=== PATIENT | female | born 1950 | race Asian ===

== ENCOUNTER 2016-11-25 08:47 | Emergency (ER) | payer OTHER ==
[~2016-11-25] VITALS: Ht 160 cm; Wt 56.0 kg
[2016-11-25 08:55] VITALS: Ht 160 cm; Wt 56.0 kg
[2016-11-25] MEDS ORDERED: SOD CHLORIDE 0.9% 1,000 ML IV STA (12:04)
[2016-11-25] MEDS ORDERED: FAMOTIDINE 20 MG INJ IV STA (12:04)
[2016-11-25] MEDS ORDERED: ONDANSETRON 4 MG INJ IV STA (12:04)
[2016-11-25] MEDS ORDERED: morphine 2 MG INJ IV STA (12:04)
[2016-11-25] MEDS ORDERED: LANT3I SC (12:26)
[2016-11-25] MEDS ORDERED: RANO10002 PO (12:27)
[2016-11-25] MEDS ORDERED: FENO200C8 PO (12:27)
[2016-11-25] MEDS ORDERED: INSU200I SQ (12:28)
[2016-11-25] MEDS ORDERED: CLOP75TA27 PO (12:28)
[2016-11-25] MEDS ORDERED: ATOR20TA38 PO (12:29)
[2016-11-25] MEDS ORDERED: ATOR40TA68 PO (12:29)
[2016-11-25] MEDS ORDERED: AMLO-147 PO (12:30)
[2016-11-25] MEDS ORDERED: CARV3.1260 PO (12:30)
[2016-11-25] MEDS ORDERED: FURO-110 PO (12:31)
[2016-11-25] MEDS ORDERED: ASPI325T4 PO (12:31)
[2016-11-25] MEDS ORDERED: CALC0.5C4 PO (12:32)
[2016-11-25] MEDS ORDERED: SITA25TA3 PO (12:38)
--- NOTE | 2016-11-25 12:42 | RADRPT ---
PROCEDURE: CT Abdomen and Pelvis without contrast. CLINICAL INDICATION: Abdominal and pelvic pain. TECHNIQUE: CT scan of the abdomen and pelvis without contrast was performed. Coronal and sagittal reformatted images were obtained from the axial source images. Images were reviewed on a high-resolu [employer] PACS workstation. Total exam DLP is 403.55 mGy-cm. CTDIvol is 7.43 mGy. One or more of the fo llofox dose reduction techniques were used: Automated exposure control, adjustment of the mA and/or kV according to patient size, use of iterative reconstruction technique. COMPARISON: None. FINDINGS: The lung bases are normal. There is no pleural effusion or pericardial effusion. There are sternal wires and mediastinal clips from previous CABG. The liver is normal in size and attenuation. There is no focal hepatic lesion. The gallbladder is not visualized indicating it may be surgically absent. The common bile duct is d ilated measuring approximately 9 mm in diameter superiorly and 10 mm in diameter inferiorly. No obs tructing lesion is visualized. The spleen is normal in size. There is no focal splenic lesion. Both adrenals are normal with no enlargement or mass. The pancreas is unremarkable with no mass or evidence of pancreatitis. There is no renal mass or hydronephrosis. There is no renal calculus or ureteral calculus. The abdominal aorta is not dilated. There is calcification in the aorta consistent with atherosclero sis There is no retroperitoneal lymphadenopathy or mass. There is no pelvic lymphadenopathy or mass. The bladder and distal ureters are normal. The periappendiceal region is unremarkable with no evidence of appendicitis. The appendix is well se en and appears normal. The bowel and mesentery are normal. There is no free fluid or free gas. There are mild degenerative changes of the spine. There is no fracture or lytic lesion. IMPRESSION: 1. Status post CABG. 2. Gallbladder not visualized. 3. Mildly dilated common bile duct. 4. Atherosclerosis. 5. Normal appendix. 6. Mild degenerative changes of the spine. RPTAT: QQ .Demarco Pittman MD, MD Date Time Electronically viewed and signed by .Demarco Pittman MD, on 11/25/2016 12:42 .R/
--- NOTE | 2016-11-25 12:43 | RADRPT ---
PROCEDURE: XR Chest. CLINICAL INDICATION: Abdominal pain. TECHNIQUE: Single frontal view. COMPARISON: None. FINDINGS: There is right apical pleural thickening and adjacent pulmonary scarring. The lungs are otherwise cl ear. The heart size is normal. There are sternal wires. There is no pleural effusion. There is no pneumothorax. IMPRESSION: 1. Right apical pleural thickening and adjacent pulmonary scarring. 2. Previous median sternotomy. 3. Otherwise normal chest x-ray. RPTAT: QQ .Demarco Pittman MD, MD Date Time Electronically viewed and signed by .Demarco Pittman MD, MD on 11/25/2016 12:42 .R/
--- NOTE | 2016-11-25 12:44 | ERA ---
ER Documentation Chief Complaint Date/Time DATE: 11/25/16 TIME: 12:42 Chief Complaint EPIGASTRIC PAIN X 3 DAYS WITH NAUSEA VOMITING HPI This is a 66-year-old female history of coronary disease, who presents with epigastric abdominal pain with nausea and vomiting and lack of bowel movement for approximately 3 days. The patient describes the pain is moderate, intermittent with nonbloody nonbilious emesis. No bowel movement in approximately 5 days. Patient does not believe she has had abdominal surgical history. She also describes chest pain with the chest pain is constant, similar to chest pain that she has almost daily and is unchanged. She denies any exertional symptoms., No pleuritic pain. ROS All systems reviewed and are negative except as per history of present illness. Medications Home Meds Active Scripts Omeprazole* (Omeprazole*) 20 Mg Capsule.dr, 20 MG PO DAILY, #30 Prov:ANTHONY ULRICH MD 11/25/16 Ondansetron (Ondansetron Odt) 4 Mg Tab.rapdis, 4 MG PO Q6H Y for NAUSEA AND/OR VOMITING, #10 TAB Prov:ANTHONY ULRICH MD 11/25/16 Reported Medications Sitagliptin* (Januvia*) 25 Mg Tablet, 25 MG PO DAILY, #30 TAB 11/25/16 Calcitriol* (Calcitriol*) 0.5 Mcg Capsule, 0.5 MCG PO DAILY, CAP 11/25/16 Aspirin* (Aspirin*) 325 Mg Tablet, 325 MG PO DAILY, TAB 11/25/16 Furosemide* (Lasix*) 20 Mg Tablet, 20 MG PO BID, TAB 11/25/16 Amlodipine Besylate* (Amlodipine Besylate*) 10 Mg Tablet, 10 MG PO DAILY, #30 TAB 11/25/16 Carvedilol* (Carvedilol*) 3.125 Mg Tablet, 3.125 MG PO BID, #60 TAB 11/25/16 Atorvastatin Calcium* (Atorvastatin Calcium*) 20 Mg Tablet, 20 MG PO QHS, #30 TAB 11/25/16 Insulin Lispro (Humalog Kwikpen) 200 Unit/1 Ml Insuln.pen, 10 UNIT SQ BID WITH MEALS, EA 11/25/16 Clopidogrel Bisulfate (Clopidogrel) 75 Mg Tablet, 75 MG PO DAILY, #30 TAB 11/25/16 Fenofibrate, Micronized* (Fenofibrate*) 200 Mg Capsule, 200 MG PO DAILY, CAP 11/25/16 Ranolazine* (Ranexa*) 1,000 Mg Tab.sr.12h, 1000 MG PO Q12, TAB 11/25/16 Insulin Glargine* (Lantus*) 100 Unit/Ml Soln, 27 UNIT SC DAILY, #1 VIAL 11/25/16 Discontinued Reported Medications Atorvastatin* (Atorvastatin*) 40 Mg Tablet, 40 MG PO QHS, #30 TAB 11/25/16 Allergies Allergies: Coded Allergies: allopurinol (Unverified Allergy, Unknown, RASH HIVES, 11/25/16) gabapentin (Unverified Allergy, Unknown, RASH HIVES, 11/25/16) levofloxacin (Unverified Allergy, Unknown, RASH HIVES, 11/25/16) FmHx Family History: No diabetes Physical Exam Vitals Vital Signs Date Time Temp Pulse Resp B/P Pulse Ox O2 Delivery O2 Flow Rate FiO2 11/25/16 08:55 97.7 74 18 119/72 100 Physical Exam General: Well developed, well nourished, no acute distress Head: Normocephalic, atraumatic. Eyes: Pupils equally reactive, EOM intact ENT: Moist mucous membranes Neck: Supple, no lymphadenopathy Respiratory: Lungs clear bilaterally, no distress Cardiovascular: RRR, no murmurs, rubs, or gallops Abdominal: Soft, mild epigastric abdominal tenderness to palpation without rebound or guarding, no pulsatile mass, non-distended, no peritoneal signs : Deferred MSK: No edema, no unilateral swelling, 5/5 strength Neurologic: Alert and oriented, moving all extremities, normal speech, no focal weakness, no cerebellar signs Skin: No rash Psych: Normal mood Result Diagram: 11/25/16 1225 11/25/16 1225 Results 24 hrs Laboratory Tests Test 11/25/16 12:25 11/25/16 13:20 White Blood Count 10.810^3/ul Red Blood Count 3.8310^6/ul Hemoglobin 10.8g/dl Hematocrit 34.1% Mean Corpuscular Volume 89.0fl Mean Corpuscular Hemoglobin 28.2pg Mean Corpuscular Hemoglobin Concent 31.7g/dl Red Cell Distribution Width 13.7% Platelet Count 62281^3/UL Mean Platelet Volume 11.2fl Neutrophils % 78.2% Lymphocytes % 16.2% Monocytes % 3.8% Eosinophils % 0.3% Basophils % 0.5% Nucleated Red Blood Cells % 0.0/100WBC Neutrophils # 8.410^3/ul Lymphocytes # 1.710^3/ul Monocytes # 0.410^3/ul Eosinophils # 0.010^3/ul Basophils # 0.110^3/ul Nucleated Red Blood Cells # 0.010^3/ul Prothrombin Time 13.1Sec Prothrombin Time Ratio 1.0 INR International Normalized Ratio 0.99 Activated Partial Thromboplast Time 31.4Sec Sodium Level 136mmol/L Potassium Level 3.6mmol/L Chloride Level 95mmol/L Carbon Dioxide Level 26mmol/L Anion Gap 19 Blood Urea Nitrogen 51mg/dl Creatinine 2.51mg/dl Glucose Level 176mg/dl Calcium Level 9.7mg/dl Total Bilirubin 0.2mg/dl Direct Bilirubin 0.00mg/dl Indirect Bilirubin 0.2mg/dl Aspartate Amino Transf (AST/SGOT) 26IU/L Alanine Aminotransferase (ALT/SGPT) 23IU/L Alkaline Phosphatase 53IU/L Troponin I 0.026ng/ml Total Protein 9.0g/dl Albumin 4.3g/dl Globulin 4.70g/dl Albumin/Globulin Ratio 0.91 Lipase 51U/L Urine Color LT. YELLOW Urine Clarity CLEAR Urine pH 5.5 Urine Specific [place] 1.020 Urine Ketones NEGATIVE Urine Nitrite NEGATIVE Urine Bilirubin NEGATIVE Urine Urobilinogen 0.2 E.U./dL Urine Leukocyte Esterase NEGATIVE Urine Microscopic RBC Pending Urine Microscopic WBC Pending Urine Hemoglobin TRACE Urine Glucose 0.5%% Urine Total Protein 2+ Current Medications Medications (Trade) Dose Ordered Sig/Andres Route PRN Reason Start Time Stop Time Status Last Admin Dose Admin Sodium Chloride (NS) 1,000 ml @ 1,000 mls/hr Q1H STAT IV 11/25/16 12:04 11/25/16 13:03 DC 11/25/16 13:00 Morphine Sulfate (morphine) 2 mg ONCE STAT IV 11/25/16 12:04 11/25/16 12:06 DC Ondansetron HCl (Zofran Inj) 4 mg ONCE STAT IV 11/25/16 12:04 11/25/16 12:06 DC 11/25/16 13:00 Famotidine (Pepcid Iv) 20 mg ONCE STAT IV 11/25/16 12:04 11/25/16 12:06 DC 11/25/16 13:00 Procedures/MDM EKG, MONITORS, & DIAGNOSTIC IMAGING: EKG: I reviewed and interpreted a 12-lead EKG. Rhythm: Normal sinus rhythm Ectopy: None Intervals: No abnormalities ST segments: No elevations or depressions T waves: No contiguous inversions Chest x-ray: I reviewed and interpreted a 1 view of the chest Mediastinum: No enlargement Cardiac silhouette: No cardiomegaly Airspace: Clear lung larios bilaterally without evidence of pneumothorax Bones: No evidence of fracture CT abdomen and pelvis: IMPRESSION: 1. Status post CABG. 2. Gallbladder not visualized. 3. Mildly dilated common bile duct. 4. Atherosclerosis. 5. Normal appendix. 6. Mild degenerative changes of the spine. RPTAT: QQ LAB INTERPRETATION: The patient's troponin is negative, no leukocytosis, chronic renal insufficiency , creatinine is actually improved from baseline around 3-3.5. MEDICAL DECISION MAKING: The patient presents with multiple complaints. Her chest pain seems to be consistent with chronic, stable angina. The patient states that she has this pain daily, it is unchanged and not worsening recently. The patient does have risk factors for coronary disease therefore EKG and troponin would be appropriate. However this is not the reason for visit today. She is mostly concerned about abdominal pain and vomiting and lack of bowel movement. Consider possible viral process however also consider bowel obstruction. Much lower clinical concern for acute vascular process. The patient will benefit from laboratory testing and diagnostic imaging. IV fluids and pain control medication. ER COURSE: The patient's symptoms are dramatically improved with IV fluids, pain medication. The patient has since tolerated oral intake with a dramatic improvement of her symptoms. A repeat abdominal exam is again benign. It should be noted again that the patient has chronic stable angina that is unchanged. She states that the chest pain is similar to chest pain daily and this is not the main reason for visit today. The main reason is her abdominal pain and vomiting. Consider possible dyspepsia, peptic ulcer disease versus viral process. The patient has since tolerated oral intake she has a repeated abdominal exam that is benign. The patient is safe for outpatient management. I discussed close primary care follow-up and return precautions. I kept the patient and/or family informed of laboratory and diagnostic imaging results throughout the emergency room course. DISPOSITION PLAN: We discussed follow up with the patient's primary care doctor within 24 to 48 hours as needed. We also discussed return to the emergency room for worsening symptoms or worsening condition. Outpatient referral: [None required] Discharge Medications: Zofran, Prilosec Departure Diagnosis: Primary Impression: Nausea and vomiting Qualified Code: R11.2 - Non-intractable vomiting with nausea, unspecified vomiting type Additional Impressions: Epigastric abdominal pain Chronic stable angina Chronic renal insufficiency Qualified Code: N18.9 - Chronic renal insufficiency, unspecified stage Condition: Stable ANTHONY ULRICH MD November 25, 2016 12:44
[2016-11-25 12:55] LABS: ADD SCAN DIFF NO
[2016-11-25 12:57] LABS: BASOPHIL # 0.1 10^3/ul (0.0-0.1); BASOPHILS % 0.5 % (0.0-2.0); EOSINOPHILS % 0.3 % (0.0-7.0); HEMATOCRIT 34.1 % (37.0-47.0); HEMOGLOBIN 10.8 g/dl (12.0-16.0); LYMPHOCYTES # 1.7 10^3/ul (0.8-2.9); LYMPHOCYTES % 16.2 % (15.0-51.0); MEAN CORPUSCULAR HEMOGLOBIN 28.2 pg (29.0-33.0); MEAN CORPUSCULAR HGB CONC 31.7 g/dl (32.0-37.0); MEAN PLATELET VOLUME 11.2 fl (7.4-10.4); MONOCYTE # 0.4 10^3/ul (0.3-0.9); MONOCYTES % 3.8 % (0.0-11.0); NEUTROPHIL # 8.4 10^3/ul (1.6-7.5); NEUTROPHILS % 78.2 % (39.0-77.0); PLATELET COUNT 350 10^3/UL (140-415); RED BLOOD COUNT 3.83 10^6/ul (4.20-5.40); RED CELL DISTRIBUTION WIDTH 13.7 % (11.5-14.5); WHITE BLOOD COUNT 10.8 10^3/ul (4.8-10.8)
[2016-11-25 13:19] LABS: INR 0.99; PARTIAL THROMBOPLASTIN TIME 31.4 Sec (25.0-35.0); PROTIME 13.1 Sec (12.2-14.2)
[2016-11-25 13:34] LABS: ALBUMIN 4.3 g/dl (3.3-4.9); POTASSIUM 3.6 mmol/L (3.5-5.1)
[2016-11-25 13:36] LABS: CREATININE 2.51 mg/dl (0.44-1.00)
[2016-11-25 13:37] LABS: ALBUMIN/GLOBULIN RATIO 0.91; BILIRUBIN,INDIRECT 0.2 mg/dl (0-1.1); BILIRUBIN,TOTAL 0.2 mg/dl (0.2-1.3); CALCIUM 9.7 mg/dl (8.4-10.2)
[2016-11-25 13:48] LABS: ADD UMIC YES; URINE BILIRUBIN (Dip) NEGATIVE (NEGATIVE); URINE BLOOD (Dip) TRACE (NEGATIVE); URINE COLOR LT. YELLOW (YELLOW); URINE KETONES (Dip) NEGATIVE (NEGATIVE); URINE LEUKOCYTE ESTERASE (Dip) NEGATIVE (NEGATIVE); URINE NITRITE (Dip) NEGATIVE (NEGATIVE); URINE TOTAL PROTEIN (Dip) 2+ (NEGATIVE); URINE UROBILINOGEN (Dip) 0.2 E.U./dL (0.1-1.0)
[2016-11-25 14:02] LABS: TROPONIN-I 0.026 ng/ml (0.00-0.12)
[2016-11-25] MEDS ORDERED: ONDA4TAB14 PO (14:20)
[2016-11-25] MEDS ORDERED: OMEP20CA16 PO (14:20)
[2016-11-25 14:50] LABS: BACTERIA,URINE FEW; URINE RBCS 0-2 /HPF (0)
== END 2016-11-25 14:50 | disposition home or self-care (01) ==
LOC: E/R 08:47
DX: R11.2 Nausea with vomiting, unspecified (principal); I20.9 Angina pectoris, unspecified; N18.9 Chronic kidney disease, unspecified; E11.9 Type 2 diabetes mellitus without complications; I12.9 Hypertensive chronic kidney disease with stage 1 through stage 4 chronic kidney disease, or unspecified chronic kidney disease; Z79.4 Long term (current) use of insulin; Z79.84 Long term (current) use of oral hypoglycemic drugs; Z79.82 Long term (current) use of aspirin; Z98.61 Coronary angioplasty status
CPT/HCPCS: 36415; 71010; 74176; 80053; 81001; 83690; 84484; 85025; 85610; 85730; 93005; 96374; 96375; J2405; J7030; Z7502; Z7610; 81003